=== PATIENT | male | born 1945 | race Hispanic/Latino ===

== ENCOUNTER 2019-07-07 21:37 | Emergency (ER) | payer OTHER, MEDICARE ==
[~2019-07-07] VITALS: Ht 170.2 cm; Wt 79.4 kg
[~2019-07-07 21:37] MED LIST: AMLODIPINE BESYL5 MG PO; ASPIRIN CHEW81 MG PO; CENTRUM CHEWAB1 EACH PO; FINASTERIDE5 MG PO; HYDROCHLOROTHIA25 MG; LOSARTAN POTASS25 MG; METFORMIN HCL500 MG PO; SIMVASTATIN20 MG PO; VITAMIN C500 M2 PO
--- OUTSIDE RECORDS SUMMARY | 2019-07-07 21:41 | XMS REPORT | Clinical Summary ---
Author Author [facility] Address Unknown Phone Unavailable Care Team Providers Care Siebel Crm Developer Name Role Phone Keturah Rivera PCP Unavailable Allergies No Known Allergies Medications End Date Status Medication Sig Dispensed Refills Start Date Active simvastatin (ZOCOR) 20 MG Take 20 mg by 0 tablet mouth nightly. Active metFORMIN (GLUCOPHAGE) Take 500 mg 0 500 MG tablet by mouth 2 (two) times daily with breakfast and dinner. Active hydroCHLOROthiazide Take 12.5 mg 0 (MICROZIDE) 12.5 mg by mouth capsule daily. Active losartan (COZAAR) 100 MG Take 100 mg 0 tablet by mouth daily. Active finasteride (PROSCAR) 5 Take 5 mg by 0 mg tablet mouth daily. Active Problems Not on file Social History Date Tobacco Use Types Packs/Day Years Used Former Smoker Alcohol Use Drinks/Week oz/Week Comments No Sex Assigned at Date Recorded Not on file Industry Job Start Date Occupation Not on file Not on file Not on file Travel End Travel History Travel Start No recent travel history available. Last Filed Vital Signs Not on file Plan of Treatment Not on file Results Not on fileafter 07/06/2018 Insurance Payer Benefit Subscriber ID Type Phone Address Plan / Group [employer] - [employer] [facility] xxxxxxxxxxx HMO/POS NETWORK
--- OUTSIDE RECORDS SUMMARY | 2019-07-07 21:41 | XMS REPORT ---
Author Author [facility] Organization [facility] Address Unknown Phone Unavailable Care Team Providers Care Marinator Name Role Phone Renetta ALEX Unavailable Unavailable ALEKSANDER CLAY Unavailable Unavailable Problems This patient has no known problems. Allergies, Adverse Reactions, Alerts This patient has no known allergies or adverse reactions. Medications This patient has no known medications. Results Test Description Test Time Test Comments Text Results Atomic Results Result Comments RAPID CK-MB 2016-06-28 16:20:00 RAPID CKMB (BEAKER) (test code = 1482) < ng/mL 0.0-4.3 RAPID TROPONIN [id number] 16:20:00* Test Item Value Reference Range Comments RAPID TROPONIN I (BEAKER) (test code = 1483) < ng/mL <0. 05 BASIC METABOLIC [id number] 16:15:00* Test Item Value Reference Range Comments SODIUM (BEAKER) (test code = 381) 140 meq/L 135-148 POTASSIUM (BEAKER) (test code = 379) 4.3 meq/L 3.6-5.5 CHLORIDE (BEAKER) (test code = 382) 103 meq/L 98-106 CO2 (BEAKER) (test code = 355) 29 meq/L 24-32 BLOOD UREA NITROGEN (BEAKER) (test code = 354) 18 mg/dL 1 0-26 CREATININE (BEAKER) (test code = 358) 0.77 mg/dL 0.50-1.20 GLUCOSE RANDOM (BEAKER) (test code = 652) 150 mg/dL 70-110 CALCIUM (BEAKER) (test code = 697) 9.3 mg/dL 8.5-10.5 EGFR (BEAKER) (test code = 1092) 100 mL/min/1.73 sq m ESTIMATED GFR IS NOT ACCURATE CREATININE CLEARANCE IN PREDICTING GLOMERULAR FILTRATION RATE. ESTIMATED GFR IS NOT APPLICABLE FOR DIALYSIS PATIENTS. CBC W/PLT COUNT & AUTO [id number] 16:04:00* Test Item Value Reference Range Comments WHITE BLOOD CELL COUNT (BEAKER) (test code = 775) 9.5 10e3/ L 4.0-10.0 RED BLOOD CELL COUNT (BEAKER) (test code = 761) 4.22 10e6/ L 4.20-5.80 HEMOGLOBIN (BEAKER) (test code = 410) 12.5 g/dL 13.0-16.8 HEMATOCRIT (BEAKER) (test code = 411) 37.3 % 40.0-50.0 MEAN CORPUSCULAR VOLUME (BEAKER) (test code = 753) 88.4 fL 82.0-98.0 MEAN CORPUSCULAR HEMOGLOBIN (BEAKER) (test code = 751) 29.8 pg 27.0-33.0 MEAN CORPUSCULAR HEMOGLOBIN CONC (BEAKER) (test code = 752) 33.6 g/dL 32.0-36.0 RED CELL DISTRIBUTION WIDTH (BEAKER) (test code = 412) 12.3 % 10.3-14.2 PLATELET COUNT (BEAKER) (test code = 756) 278 10e3/ L 150-43 0 MEAN PLATELET VOLUME (BEAKER) (test code = 754) 6.8 fL 6.5-10.5 NEUTROPHILS RELATIVE PERCENT (BEAKER) (test code = 429) 76 % LYMPHOCYTES RELATIVE PERCENT (BEAKER) (test code = 430) 15 % MONOCYTES RELATIVE PERCENT (BEAKER) (test code = 431) 7 % EOSINOPHILS RELATIVE PERCENT (BEAKER) (test code = 432) 3 % BASOPHILS RELATIVE PERCENT (BEAKER) (test code = 437) 0 % NEUTROPHILS ABSOLUTE COUNT (BEAKER) (test code = 670) 7.21 10e3/ L 1.80-8.00 LYMPHOCYTES ABSOLUTE COUNT (BEAKER) (test code = 414) 1.38 10e3/ L 1.48-4.50 MONOCYTES ABSOLUTE COUNT (BEAKER) (test code = 415) 0.64 10e3/ L 0.00-1.30 EOSINOPHILS ABSOLUTE COUNT (BEAKER) (test code = 416) 0.25 10e3/ L 0.00-0.50 BASOPHILS ABSOLUTE COUNT (BEAKER) (test code = 417) 0.04 10e3/ L 0.00-0.20 CHEST 2 VIEWS [facility] [address] [address] Patient Name: EVA THOMAS MR #: [id number] : 1945 Age/Sex: 71/M Req #: [id number] [facility] Physician: Ordered by: TRINIDAD ALEX MD Report #: [id number] Location: ER Room/Bed: Procedure: [id number] DX/CHEST 2 VIEWS Exam Aftab e: 11/29/16 Exam Time: 2200 REPORT STATUS: Sign ed EXAM: CHEST 2 VIEWS, PA and lateral DATE: 11/29/2016 8:21 PM Time stamp on exam: 2155 hours INDICATION: Shortness of breath, cough COMPARISON: None FINDINGS: LINES/TUBES: None LUNGS: No consolidations or edema. PLEURA: No effusions or pneumothorax. HEART AND MEDIASTINUM: Normal size a nd contour. BONES AND SOFT TISSUES: No acute findings. IMPRESSION: No evidence of pneumonia Signed by: Dr. Dian Lou M.D. on 11:03 PM Dictated By: DIAN LOU MD Transcribed By: GUCCI on 11/29/168 COPY TO: TRINIDAD ALEX MD
--- NOTE | 2019-07-07 22:07 | Emergency Department Note ---
History of Present Illnes History of Present Illness Chief Complaint: Chest Pain Stated Complaint: HEART RACING, HIGH BLOOD PRESSURE History of Present Illness This is a 74 year old male with sudden onset of palpitatoins and Left sided thrill on neck. Asymptomatic at bedside Historian: Patient Onset (how long ago): second(s) (prior to arrival) Radiation: non-radiation Severity: mild Onset quality: sudden Timing of current episode: constant Progression: resolved Chronicity: new Relieving factors: none Exacerbating factors: none Associated symptoms: other Treatments prior to arrival: none Past Medical/Family History Physician Review I have reviewed the patient's past medical and family history. Any updates have been documented here. Past Medical History Recent Fever: No Clinical Suspicion of Infectio: No Past Medical History: Hypertension Other Medical History: FUILD RETENTION Social History Smoking Cessation: Never Smoker Alcohol Use: None Any Illegal Drug Use: No Other Last Tetanus: UNK Review of Systems Review of Systems Constitutional: no symptoms EENTM: no symptoms Cardiovascular: no symptoms, palpitations, other (dypsnea) Gastointestinal/Abdominal: no symptoms Genitourinary: no symptoms Musculoskeletal: no symptoms Integumentary: no symptoms Neurological: no symptoms Psychological: no symptoms Endocrine: no symptoms Hematological/Lymphatic: no symptoms Review of other systems All other systems reviewed and negative. Physical Exam Related Data Allergies: Coded Allergies: No Known Allergies (Unverified , 11/29/16) Physical Exam CONSTITUTIONAL Constitutional: well-developed, well-nourished HENT HENT: normocephalic, atraumatic, oropharynx clear/moist, nose normal HENT - Ear: left ext ear normal, right ext ear normal EYES Eyes: PERRL, conjunctivae normal NECK Neck: ROM normal PULMONARY Pulmonary: effort normal, breath sounds normal CARDIOVASCULAR Cardiovascular: regular rhythm, heart sounds normal, capillary refill normal, normal rate GASTROINTESTINAL Abdominal: soft, nontender, bowel sounds normal GENITOURINARY Genitourinary: exam deferred SKIN Skin: warm, dry MUSCULOSKELETAL Musculoskeletal: ROM normal NEUROLOGICAL Neurological: alert, oriented x 3, no gross motor or sensory deficits PSYCHOLOGICAL Psychiatric/behavioral: mood/affect normal, judgement normal Results Laboratory Laboratory Laboratory Tests Test 07/07/19 22:07 White Blood Count 7.61 x10e3/uL (4.8-10.8) Red Blood Count 4.07 x10e6/uL (4.3-5.7) Hemoglobin 11.5 g/dL (14.0-18.0) Hematocrit 35.6 % (38.2-49.6) Mean Corpuscular Volume 87.5 fL (81-99) Mean Corpuscular Hemoglobin 28.3 pg (28-32) Mean Corpuscular Hemoglobin Concent 32.3 g/dL (31-35) Red Cell Distribution Width 13.2 % (11.7-14.4) Platelet Count 270 x10e3/uL (140-360) Neutrophils (%) (Auto) 67.2 % (38.7-80.0) Lymphocytes (%) (Auto) 21.7 % (18.0-39.1) Monocytes (%) (Auto) 6.8 % (4.4-11.3) Eosinophils (%) (Auto) 3.2 % (0.0-6.0) Basophils (%) (Auto) 0.7 % (0.0-1.0) Neutrophils # (Auto) 5.1 (2.1-6.9) Lymphocytes # (Auto) 1.7 (1.0-3.2) Monocytes # (Auto) 0.5 (0.2-0.8) Eosinophils # (Auto) 0.2 (0.0-0.4) Basophils # (Auto) 0.1 (0.0-0.1) Absolute Immature Granulocyte (auto 0.03 x10e3/uL (0-0.1) Sodium Level 138 mmol/L (136-145) Potassium Level 3.9 mmol/L (3.5-5.1) Chloride Level 104 mmol/L (98-107) Carbon Dioxide Level 22 mmol/L (22-29) Anion Gap 15.9 mmol/L (8-16) Blood Urea Nitrogen 25 mg/dL (7-26) Creatinine 1.28 mg/dL (0.72-1.25) Estimat Glomerular Filtration Rate 55 ML/MIN (60-) BUN/Creatinine Ratio 20 (6-25) Glucose Level 199 mg/dL (74-118) Calcium Level 9.1 mg/dL (8.4-10.2) Total Bilirubin 0.3 mg/dL (0.2-1.2) Aspartate Amino Transf (AST/SGOT) 20 IU/L (5-34) Alanine Aminotransferase (ALT/SGPT) 18 IU/L (0-55) Alkaline Phosphatase 84 IU/L (40-150) Creatine Kinase 101 IU/L (30-200) Creatine Kinase MB 1.90 ng/mL (0-5.0) Troponin I 0.008 ng/mL (0-0.300) B-Type Natriuretic Peptide 14.8 pg/mL (0-100) Total Protein 8.1 g/dL (6.5-8.1) Albumin 3.8 g/dL (3.5-5.0) Globulin 4.3 g/dL (2.3-3.5) Albumin/Globulin Ratio 0.9 (0.8-2.0) Lab results reviewed: Yes Imaging Y: Yes Impressions [address] [place] [address] Patient Name: EVA THOMAS MR #: [id number] : 1945 Age/Sex: 74/M Req #: [id number] Adm Physician: Ordered by: PAYTON OSORIO DO Report #: [id number] Location: ER Room/Bed: Procedure: [id number] DX/CHEST 2 VIEWS Exam Date: 07/07/19 Exam Time: 0 REPORT STATUS: Signed EXAMINATION: CHEST 2 VIEWS INDICATION: Chest pain COMPARISON: None FINDINGS: PA and lateral views TUBES and LINES: None. LUNGS: Lungs are well inflated. Lungs are clear. There is no evidence of pneumonia or pulmonary edema. PLEURA: No pleural effusion or pneumothorax. HEART AND MEDIASTINUM: The cardiomediastinal silhouette is unremarkable. BONES AND SOFT TISSUES: No acute osseous lesion. Soft tissues are unremarkable. UPPER ABDOMEN: No free air under the diaphragm. IMPRESSION: No acute thoracic radiographic abnormality. Signed by: Kait Reeves MD on 07/07/2019 11:14 PM Dictated By: KAIT REEVES MD 13 Transcribed By: GUCCI on 07/07/192313 COPY TO: PAYTON OSORIO DO~ Procedures 12 Lead ECG Interpretation Nurse Coordinator: Interpreted by ED physician Date: July 07, 2019 Prior REVENUE INTEGRITY ANALYST tracings: reviewed Rhythm: sinus rhythm Rate: normal (75) QRS axis: normal ST Segments Normal: Yes T Waves Normal: Yes Other findings: no other findings Clinical Impression: normal ECG Critical Care Time Subsequent provider I assumed direction of critical care for this patient from another provider of my specialty. Assessment & Plan Assessment & Plan Problems: (1) Palpitations (2) Hypertension Assessment & Plan Plan: labs reviewed Patient asymptomatic with near normal EKG Plan to discharge to home Depart Disposition: HOME, SELF-CARE Last Vital Signs Date Time Temp Pulse Resp B/P (MAP) Pulse Ox O2 Delivery O2 Flow Rate FiO2 07/07/19 21:54 97.9 75 17 190/81 99 Home Meds Reported Medications Simvastatin (SIMVASTATIN) 20 Mg Tablet, PO 2100, EA 11/29/16 Finasteride (FINASTERIDE) 5 Mg Tablet, 5 MG PO DAILY, #30 TAB 11/29/16 Amlodipine Besylate (AMLODIPINE BESYLATE) 5 Mg Tablet, 5 MG PO DAILY, #30 TAB 11/29/16 Folic Acid/Mv,Fe,Other Min (CENTRUM CHEWABLE TABLET) 1 Each Tab.chew, 1 TAB PO DAILY 11/29/16 Ascorbic Acid (VITAMIN C) 500 Mg Tab.chew, 500 MG PO DAILY 11/29/16 Aspirin (ASPIRIN CHEW) 81 Mg Chew, 81 MG PO DAILY, #30 TAB 11/29/16 Losartan Potassium (LOSARTAN POTASSIUM) 25 Mg Tablet 11/29/16 Hydrochlorothiazide (HYDROCHLOROTHIAZIDE) 25 Mg Tablet, DAILY, #30 TAB 11/29/16 Metformin Hcl (METFORMIN HCL) 500 Mg Tablet, 500 MG PO BID, #60 TAB 11/29/16 PAYTON OSORIO DO July 07, 2019 22:04
[2019-07-07 22:24] LABS: BASOPHILS # (AUTO) 0.1 (0.0-0.1); BASOPHILS % 0.7 % (0.0-1.0); EOSINOPHILS # (AUTO) 0.2 (0.0-0.4); EOSINOPHILS % 3.2 % (0.0-6.0); HEMATOCRIT 35.6 % (38.2-49.6); HEMOGLOBIN 11.5 g/dL (14.0-18.0); LYMPHOCYTES # (AUTO) 1.7 (1.0-3.2); LYMPHOCYTES % 21.7 % (18.0-39.1); MEAN CORPUSCULAR HEMOGLOBIN 28.3 pg (28-32); MEAN CORPUSCULAR HGB CONC 32.3 g/dL (31-35); MEAN CORPUSCULAR VOLUME 87.5 fL (81-99); MONOCYTES # (AUTO) 0.5 (0.2-0.8); MONOCYTES % 6.8 % (4.4-11.3); NEUTROPHILS # (AUTO) 5.1 (2.1-6.9); NEUTROPHILS % 67.2 % (38.7-80.0); PLATELET COUNT 270 x10e3/uL (140-360); RED BLOOD COUNT 4.07 x10e6/uL (4.3-5.7); RED CELL DISTRIBUTION WIDTH 13.2 % (11.7-14.4)
[2019-07-07 22:40] LABS: ALBUMIN 3.8 g/dL (3.5-5.0); ALBUMIN/GLOBULIN RATIO 0.9 (0.8-2.0); ANION GAP 15.9 mmol/L (8-16); CALCIUM 9.1 mg/dL (8.4-10.2); CREATININE, SERUM 1.28 mg/dL (0.72-1.25); POTASSIUM 3.9 mmol/L (3.5-5.1)
[2019-07-07 22:46] LABS: CREATINE KINASE MB 1.9 ng/mL (0-5.0)
--- NOTE | 2019-07-07 23:18 | Diagnostic Imaging Report ---
EXAMINATION: CHEST 2 VIEWS INDICATION: Chest pain COMPARISON: None FINDINGS: PA and lateral views TUBES and LINES: None. LUNGS: Lungs are well inflated. Lungs are clear. There is no evidence of pneumonia or pulmonary edema. PLEURA: No pleural effusion or pneumothorax. HEART AND MEDIASTINUM: The cardiomediastinal silhouette is unremarkable. BONES AND SOFT TISSUES: No acute osseous lesion. Soft tissues are unremarkable. UPPER ABDOMEN: No free air under the diaphragm. IMPRESSION: No acute thoracic radiographic abnormality. Signed by: Amado Wilcox MD on 07/07/2019 11:14 PM
[2019-07-07 23:51] VITALS: BP 169/84
== END 2019-07-07 23:54 | disposition home or self-care (01) ==
LOC: ER 21:37
DX: R00.2 Palpitations (principal); I10 Essential (primary) hypertension
CPT/HCPCS: 36415; 71046; 80053; 82550; 82553; 83880; 84484; 85025; 99283

== ENCOUNTER 2022-04-29 22:26 | Emergency (ER) | payer OTHER ==
[~2022-04-29] VITALS: Ht 170.2 cm; Wt 89.8 kg
[2022-04-29] MEDS ORDERED: MECLIZINE HCL 12.5 MG TAB PO ONE (23:00)
[2022-04-29 23:01] LABS: BASOPHILS # (AUTO) 0.1 (0.0-0.1); BASOPHILS % 0.6 % (0.0-1.0); EOSINOPHILS # (AUTO) 0.2 (0.0-0.4); EOSINOPHILS % 2.9 % (0.0-6.0); HEMATOCRIT 29.1 % (38.2-49.6); LYMPHOCYTES # (AUTO) 1.6 (1.0-3.2); LYMPHOCYTES % 19.5 % (18.0-39.1); MEAN CORPUSCULAR HEMOGLOBIN 25.4 pg (28-32); MEAN CORPUSCULAR HGB CONC 30.9 g/dL (31-35); MEAN CORPUSCULAR VOLUME 82.2 fL (81-99); MONOCYTES # (AUTO) 0.7 (0.2-0.8); MONOCYTES % 8.8 % (4.4-11.3); NEUTROPHILS # (AUTO) 5.6 (2.1-6.9); PLATELET COUNT 267 x10e3/uL (140-360); RED BLOOD COUNT 3.54 x10e6/uL (4.3-5.7)
[2022-04-29 23:08] LABS: CLARITY,URINE CLEAR (CLEAR); COLOR,URINE YELLOW (YELLOW)
[2022-04-29 23:09] LABS: KETONES,URINE NEGATIVE (NEGATIVE); LEUKOCYTE ESTERASE ,URINE 1+ (NEGATIVE); NITRITE,URINE NEGATIVE (NEGATIVE); PROTEIN,URINE DIPSTICK 2+ (NEGATIVE); URINE UROBILINOGEN 0.2 mg/dL (0.2 - 1)
[2022-04-29 23:18] LABS: ALANINE AMINOTRANSFERASE 11 IU/L (0-55); ALBUMIN 3.9 g/dL (3.5-5.0); ALBUMIN/GLOBULIN RATIO 0.9 (0.8-2.0); ALKALINE PHOSPHATASE 68 IU/L (40-150); ANION GAP 14.2 mmol/L (8-16); BLOOD UREA NITROGEN 25 mg/dL (7-26); BUN/CREATININE RATIO 24 (6-25); CALCIUM 9.2 mg/dL (8.4-10.2); CARBON DIOXIDE 22 mmol/L (22-29); CHLORIDE 104 mmol/L (98-107); CREATINE KINASE 77 IU/L (30-200); CREATININE, SERUM 1.03 mg/dL (0.72-1.25); GLUCOSE 119 mg/dL (74-118); POTASSIUM 4.2 mmol/L (3.5-5.1); SODIUM 136 mmol/L (136-145)
[2022-04-29 23:27] LABS: BACTERIA,URINE RARE /HPF; EPITHELIAL CELLS,URINE RARE /LPF
[2022-04-29] MEDS ORDERED: IOPAMIDOL 370 MG/ML 100 ML INFUS..BTL INJ ONE (23:54)
[2022-04-29] MEDS ORDERED: SODIUM CHLORIDE 0.9% 100 ML ONE (23:54)
[2022-04-30] MEDS ORDERED: ANTIVERT25 M1 PO (00:28)
[2022-04-30 00:46] VITALS: BP 141/65
== END 2022-04-30 00:42 | disposition home or self-care (01) ==
LOC: ER 22:35
DX: H81.10 Benign paroxysmal vertigo, unspecified ear (principal); R06.02 Shortness of breath; M25.512 Pain in left shoulder; M25.511 Pain in right shoulder; E11.65 Type 2 diabetes mellitus with hyperglycemia; I10 Essential (primary) hypertension; R94.31 Abnormal electrocardiogram [ECG] [EKG]
CPT/HCPCS: 36415; 70496; 70498; 80053; 81001; 82550; 82553; 84484; 85025; 93005; 99284; J7050; J8597; Q9967